=== PATIENT | female | born 1960 | race Caucasian/White ===

== ENCOUNTER 2018-11-10 06:06 | Day surgery (SDC) | payer BC ==
[2018-11-10] MEDS ORDERED: DIPRIVAN 200 MG/20 ML IV ONE (06:07)
[2018-11-10] MEDS ORDERED: Lactated Ringers 1,000 ML IV SCH (06:30)
[2018-11-10] MEDS ORDERED: Lactated Ringers 1,000 ML IV ONE (08:12)
[2018-11-10 08:47] VITALS: O2SAT 96
[2018-11-10 09:01] VITALS: BP 110/57; PULSE 58
--- NOTE | 2018-11-10 12:45 | OP ---
SURGERY DATE/TIME: 11/10/2018 0748 PREOPERATIVE DIAGNOSIS: Screening exam. POSTOPERATIVE DIAGNOSIS: Diverticulosis. PROCEDURE: Colonoscopy. SURGEON: Dr. Carter. ANESTHESIA: MAC. Medications given by anesthesia department. HISTORY: The patient is a 58 year-old white female presenting now for her first screening colonoscopy. She was appraised of the risks of the procedure including the risk of perforation, phlebitis, untoward reaction to medication, bleeding and missed lesions. The patient verbalized her understanding and desired to have the procedure performed. DESCRIPTION OF PROCEDURE: The patient was given the medications by the anesthesia department. She had continuous pulse oximetry, ECG monitoring, intermittent blood pressure monitoring and tidal CO2 monitoring during the examination. She was placed in the left lateral decubitus position. A digital rectal examination was performed and revealed normal anal sphincter tone and no masses. The flexible Olympus pediatric colonoscope was used to intubate the rectum. A view of the colon was developed sequentially to the cecum. Upon insertion and withdrawal there were noted diverticula mostly in the left side but throughout the colon. No other mucosal lesions being encountered, the scope was removed from the patient who tolerated the procedure well and was sent back to OP recovery in good condition. The prep was noted to be fair to good.
== END 2018-11-10 09:11 | disposition home or self-care (01) ==
LOC: SDC 06:06
PROVIDERS: ATTEND Family Medicine
DX: Z12.11 Encounter for screening for malignant neoplasm of colon (principal); K57.30 Diverticulosis of large intestine without perforation or abscess without bleeding
CPT/HCPCS: J2704

== ENCOUNTER 2024-09-01 07:00 | Day surgery (SDC) | payer MEDICARE ==
[2024-09-01] MEDS ORDERED: Sodium Chloride 0.9% 10 ML FLUSH Syringe IJ ONE (07:30)
[2024-09-01 08:15] VITALS: RESP 18
[2024-09-01] MEDS: TETRACAINE 0.5% STERI-UNIT SOL OP ONE ×2 (08:26→08:51)
[2024-09-01] MEDS: Ak-Dilate OPHTHALMIC*** 1.065 ML, Cyclogyl 1% OPHTH SOL 1.065 ML, GATIFLOXACIN 0.5% OPH... OP ONE (08:27)
[2024-09-01] MEDS ORDERED: BETADINE 5% OPHTHALMIC 30 ML OP ONE (09:30)
[2024-09-01] MEDS ORDERED: Zofran 4 MG/2 ML VIAL IV PRN (09:30)
[2024-09-01] MEDS ORDERED: VIGAMOX/BSS 0.15% SYR IO ONE (09:30)
[2024-09-01] MEDS ORDERED: Epinephrine Preservative Free 1 MG/ML IJ ONE (09:30)
[2024-09-01] MEDS ORDERED: TRIAMCINOLONE 15 MG/ML INJ INTRAOP ONE (09:30)
[2024-09-01] MEDS ORDERED: DIPRIVAN 200 MG/20 ML IV ONE (10:11)
[2024-09-01 10:35] VITALS: TEMP 96.4
[2024-09-01] MEDS: ACETAZOLAMIDE 250 MG TABLET PO ONE (10:46)
[2024-09-01 10:48] VITALS: BP 112/62; PULSE 66; O2SAT 94
== END 2024-09-01 10:54 | disposition home or self-care (01) ==
LOC: SDC 07:00
PROVIDERS: ATTEND Ophthalmology
DX: H25.812 Combined forms of age-related cataract, left eye (principal)
CPT/HCPCS: C1780; J0171; J2704; A9270-GY